=== PATIENT | female | born 1995 | race Caucasian/White ===

== ENCOUNTER 2016-11-22 15:35 | Emergency (ER) | payer BC, OTHER ==
[~2016-11-22 15:35] MED LIST: ADVA100A INH; PRED20 PO; TRIA0.1P3 MT; Z.0.UNKNOWN
[2016-11-22] MEDS ORDERED: ACETAMINOPHEN 325 MG TAB PO ONE (16:45)
--- NOTE | 2016-11-22 16:53 | PD ---
HPI Chief Complaint Fever, body, sore throat Date Seen: Nov 22, 2016 Time Seen: 16:44 Travel History International Travel<30 Days: No Contact w/Intl Traveler<30Days: No Known Affected Area: No History of Present Illness HPI 21-year-old 1 at 32-4/7 weeks' gestation with an EDC of January 13 who presents with a one-day history of upper respiratory symptoms including slight cough, sore throat, body ache, fever 100.8. She reports that her was sick earlier in the week with similar symptoms. She denies any obstetrical complaints at this time other than decreased movement today. Para: 0 : 1 History Past Medical History Medical History: Denies Significant Hx Past Surgical History Surgical History: No Previous Surgery Family History Family History: Negative Social History Narrative Social History Alcohol Use: No Tobacco Use: No Substance Abuse: No Allergies-Medications (Allergen,Severity, Reaction): Coded Allergies: No Known Allergies (Verified , 11/22/16) Home Meds Active Scripts Kenalog In Orab0.1 % 0.1 % Pst0.1 % Mt Daily Prn (Pain) #1 Pst Prov:Jose Chawla MD 04/11/15 Fluticasone-Salmeterol (Advair Diskus 100/50)100 Mcg/50 Mcg Inhp1 Puff INH BID #1 Ref 0 Prov:Gena Sibley MD 08/24/08 Prednisone (Deltasone)20 Mg Tab20 Mg PO DAILY #5 Ref 0 Prov:Gena Sibley MD 08/24/08 Reported Medications Miscellaneous (Unknown Meds) Misc Ref 0 08/24/08 Review of Systems Except as stated in HPI: all other systems reviewed are Neg Physical Exam Narrative GENERAL: Well-nourished, well-developed patient. SKIN: Warm and dry. HEAD: Normocephalic and atraumatic. EYES: No scleral icterus. No injection or drainage. ENT: No nasal drainage noted. Mucous membranes pink. Airway patent. NECK: Supple, trachea midline. No JVD. CARDIOVASCULAR: Regular rate and rhythm without murmurs, gallops, or rubs. RESPIRATORY: Breath sounds equal bilaterally. No accessory muscle use. GENITOURINARY: External Genitalia: intact and normal in appearance BUS glands: [-] Cervix: [-] Dilatation: [-] Effacement: [-] Station: [-] Presentation: [-] Membranes: [intact or ruptured] Uterine Contractions: [-] FHT's: Category: [-1] Baseline: [-160] Reactive: [Yes-] Variability: [-] Average Decels: [-] EXTREMITIES: No cyanosis or edema. BACK: Nontender without obvious deformity. No CVA tenderness. NEUROLOGICAL: Awake and alert. Motor and sensory grossly within normal limits. Five out of 5 muscle strength in all muscle groups. Normal speech. Data Data Vital Signs Reviewed: Yes MDM Medical Record Reviewed: Yes Narrative Course / MDM 21-year-old primigravida with as per respiratory virus symptoms, rule out influenza Plan: Influenza testing was negative Tylenol, by mouth hydration, cough syrup Diagnosis Diagnosis: Primary Impression: URI (upper respiratory infection) Additional Impression: 32 weeks gestation of Disposition: 01 DISCHARGE HOME Mirza Harrison MD Nov 22, 2016 16:53
== END 2016-11-22 18:02 | disposition home or self-care (01) ==
LOC: HOBED 15:35
DX: O99.513 Diseases of the respiratory system complicating pregnancy, third trimester (principal); J06.9 Acute upper respiratory infection, unspecified; Z3A.32 32 weeks gestation of pregnancy
CPT/HCPCS: 87804; 99284

== ENCOUNTER 2017-01-09 21:50 | Emergency (ER) | payer BC ==
--- NOTE | 2017-01-09 22:50 | PD ---
HPI Chief Complaint Contractions Date Seen: Jan 09, 2017 Travel History International Travel<30 Days: No Contact w/Intl Traveler<30Days: No Known Affected Area: No History of Present Illness HPI This patient is a 21-year-old at 39 weeks presents clinically contractions. She sees Dr. Lovell for care. Denies bleeding or rupture the membranes. heart rate tracing is reactive and she is carly every 3 minutes. Para: 0 : 1 History Past Medical History Medical History: Denies Significant Hx Allergies-Medications (Allergen,Severity, Reaction): Coded Allergies: No Known Allergies (Verified , 11/22/16) Home Meds Active Scripts Triamcinolone Acetonide (Mouth (Kenalog In Orabase)0.1 % Pst0.1 % Mt Daily Prn ( Pain) #1 Pst Prov:Jose Chawla MD 04/11/15 Fluticasone-Salmeterol (Advair Diskus 100/50)100 Mcg/50 Mcg Inhp1 Puff INH BID #1 Ref 0 Prov:Gena Sibley MD 08/24/08 Prednisone (Deltasone)20 Mg Tab20 Mg PO DAILY #5 Ref 0 Prov:Gena Sibley MD 08/24/08 Reported Medications Miscellaneous (Unknown Meds) Misc Ref 0 08/24/08 Review of Systems General / Constitutional: No: Fever, Weight Gain, Chills, Other Eyes: No: Diploplia, Blurred Vision, Visual changes, Pain, Photophobia HENT: No: Headaches, Vertigo, Lightheadedness Cardiovascular: No: Irregular Rhythm, Chest Pain or Discomfort, Palpitations, Tachycardia, Syncope, Varicosities, Edema, Cyanosis Respiratory: No: Cough, Short of Breath, Other Gastrointestinal: No: Nausea, Vomiting, Diarrhea Genitourinary: No: Decreased Urinary Output, Oliguria Musculoskeletal: No: Limited ROM, Weakness, Cramping, Edema, Pain Skin: No Rash, No Itching, No Dryness, No Lumps, No Change in Pigmentation, No Change in Nails, No Alopecia, No Lesions Neurologic: No: Weakness, Dizziness, Syncope, Focal Abnormalities, Coordination Problem, Headache, Slurred Speech, Seizures Psychiatric: No: Depression, Suicidal Ideations, Homicidal Ideation Endocrine: No: Heat Intolerance, Cold Intolerance, Polydipsia, Polyuria, Other Physical Exam Narrative GENERAL: Well-nourished, well-developed patient. SKIN: Warm and dry. HEAD: Normocephalic and atraumatic. EYES: No scleral icterus. No injection or drainage. ENT: No nasal drainage noted. Mucous membranes pink. Airway patent. NECK: Supple, trachea midline. No JVD. CARDIOVASCULAR: Regular rate and rhythm without murmurs, gallops, or rubs. RESPIRATORY: Breath sounds equal bilaterally. No accessory muscle use. BREASTS: Bilateral exam showed no masses , no retractions, no nipple discharge. ABDOMEN/GI: Abdomen soft, non-tender, bowel sounds present, no rebound, no guarding Gravid to [-37] weeks size Fundal Height: [37-] GENITOURINARY: External Genitalia: intact and normal in appearance BUS glands: [-] Cervix: [-2] Dilatation: [2-] Effacement: [50-] Station: [-3] posterior Presentation: [-vtx] Membranes: [intact ] Uterine Contractions: [Every 3 minutes-] FHT's: Category: [1-] Baseline: [133-] Reactive: [-yes] Variability: [mod-] Decels: [-none] EXTREMITIES: No cyanosis or edema. BACK: Nontender without obvious deformity. No CVA tenderness. NEUROLOGICAL: Awake and alert. Motor and sensory grossly within normal limits. Five out of 5 muscle strength in all muscle groups. Normal speech. MDM Interpretation(s) 21-year-old at 39 weeks presents planning contractions no bleeding or ruptured membranes heart rate tracing is reactive. She sees Dr. Lovell for care. Was noted be 2 cm in the office recently and tonight she still 2 cm 50% -3 very posterior. Offered a pain shot her sedation and relief she did not want that. Discharge home Plan Plan to discharge home to bedrest the 20 fluids Tylenol when necessary heating pad or hot bath soak, she is to return for an increase in contraction pain or any other symptoms associated with labor onset Diagnosis Diagnosis: Primary Impression: False labor after 37 weeks of gestation without delivery Disposition: 01 DISCHARGE HOME Condition: Stable Shahid Huston II, MD Jan 09, 2017 22:50
== END 2017-01-09 23:12 | disposition home or self-care (01) ==
LOC: HOBED 21:50
DX: O47.1 False labor at or after 37 completed weeks of gestation (principal); Z3A.39 39 weeks gestation of pregnancy
CPT/HCPCS: 99284

== ENCOUNTER 2017-01-10 01:45 | Inpatient (IN) | payer BC, OTHER ==
[2017-01-10] VITALS (50 sets, daily range): BP systolic 92–116; BP diastolic 24–82; PULSE 75–110; RESP 16–20; TEMP 97.9–98.8; O2SAT 99–100
[~2017-01-10] VITALS: Ht 157.5 cm; Wt 65.8 kg
[2017-01-10] MEDS ORDERED: LACTATED RINGER'S 1000 ML INJ 1,000 ML IV PRN (02:10)
--- NOTE | 2017-01-10 02:10 | HHI.HP ---
HPI Chief Complaint Worsening contractions Date Seen: Jan 10, 2017 Travel History International Travel<30 Days: No Contact w/Intl Traveler<30Days: No Known Affected Area: No History of Present Illness HPI Patient is 21-year-old at 39 weeks presents back and OB ED for complaining of worsening contraction pain. She was seen about 4 hours ago and sent home she was still 2 cm she now presents with stronger contractions that she's cervix is 4/ 90 and -1, she denies bleeding or rupture the membranes was Dr. Lovell for care Para: 0 : 1 History Past Medical History Medical History: Denies Significant Hx Social History Alcohol Use: No Tobacco Use: No Substance Abuse: No Allergies-Medications (Allergen,Severity, Reaction): Coded Allergies: No Known Allergies (Verified , 11/22/16) Home Meds Active Scripts Triamcinolone Acetonide (Mouth (Kenalog In Orabase)0.1 % Pst0.1 % Mt Daily Prn ( Pain) #1 Pst Prov:Jose Chawla MD 04/11/15 Fluticasone-Salmeterol (Advair Diskus 100/50)100 Mcg/50 Mcg Inhp1 Puff INH BID #1 Ref 0 Prov:Gena Sibley MD 08/24/08 Prednisone (Deltasone)20 Mg Tab20 Mg PO DAILY #5 Ref 0 Prov:Gena Sibley MD 08/24/08 Reported Medications Miscellaneous (Unknown Meds) Misc Ref 0 08/24/08 Review of Systems General / Constitutional: No: Fever, Weight Gain, Chills, Other Eyes: No: Diploplia, Blurred Vision, Visual changes, Pain, Photophobia HENT: No: Headaches, Vertigo, Lightheadedness Cardiovascular: No: Irregular Rhythm, Chest Pain or Discomfort, Palpitations, Tachycardia, Syncope, Varicosities, Edema, Cyanosis Respiratory: No: Cough, Short of Breath, Other Gastrointestinal: No: Nausea, Vomiting, Diarrhea Genitourinary: No: Decreased Urinary Output, Oliguria Musculoskeletal: No: Limited ROM, Weakness, Cramping, Edema, Pain Skin: No Rash, No Itching, No Dryness, No Lumps, No Change in Pigmentation, No Change in Nails, No Alopecia, No Lesions Neurologic: No: Weakness, Dizziness, Syncope, Focal Abnormalities, Coordination Problem, Headache, Slurred Speech, Seizures Psychiatric: No: Depression, Suicidal Ideations, Homicidal Ideation Endocrine: No: Heat Intolerance, Cold Intolerance, Polydipsia, Polyuria, Other Physical Exam Narrative GENERAL: Well-nourished, well-developed patient. SKIN: Warm and dry. HEAD: Normocephalic and atraumatic. EYES: No scleral icterus. No injection or drainage. ENT: No nasal drainage noted. Mucous membranes pink. Airway patent. NECK: Supple, trachea midline. No JVD. CARDIOVASCULAR: Regular rate and rhythm without murmurs, gallops, or rubs. RESPIRATORY: Breath sounds equal bilaterally. No accessory muscle use. BREASTS: Bilateral exam showed no masses , no retractions, no nipple discharge. ABDOMEN/GI: Abdomen soft, non-tender, bowel sounds present, no rebound, no guarding Gravid to [-38] weeks size Fundal Height: [38-] GENITOURINARY: External Genitalia: intact and normal in appearance BUS glands: [-] Cervix: [-] Dilatation: [4-] Effacement: [90-] Station: [-1] Presentation: [vtx-] Membranes: [intact ] Uterine Contractions: [reg-] FHT's: Category: [-1] Baseline: [144-] Reactive: yes-] Variability: [-mod] Decels: [-none] EXTREMITIES: No cyanosis or edema. BACK: Nontender without obvious deformity. No CVA tenderness. NEUROLOGICAL: Awake and alert. Motor and sensory grossly within normal limits. Five out of 5 muscle strength in all muscle groups. Normal speech. Assessment/Plan Assessment and Plan This patient is 21-year-old at [address] Lovell for care now in the active labor pattern, she is denying bleeding or rupture the membranes baby's heart rate tracing is reactive, she is carly every 2 minutes cervix is 4 cm 90%. Plan to admit the patient and anticipate vaginal delivery will notify her OB provider Shahid Huston II, MD Jan 10, 2017 02:10
[2017-01-10] MEDS ORDERED: OXYTOCIN 30 UNITS-500ML PREMIX 500 ML IV ONE (02:15)
[2017-01-10] MEDS ORDERED: CITRIC ACID-SODIUM CITRATE LIQ 30 ML UDC PO SCH (02:15)
[2017-01-10] MEDS ORDERED: LIDOCAINE HCL 1% 50 ML VIAL I-DERMAL PRN (02:15)
[2017-01-10] MEDS ORDERED: LIDOCAINE HCL 1% 50 ML VIAL INFIL PRN (02:15)
[2017-01-10] MEDS ORDERED: MINERAL OIL 10 ML VIAL TOPICAL PRN (02:15)
[2017-01-10] MEDS ORDERED: SODIUM CHLORID 0.9% 500 ML INJ 500 ML IV PRN (02:15)
[2017-01-10] MEDS ORDERED: SODIUM CHLOR 0.9% 1000 ML INJ 1,000 ML IV PRN (02:30)
[2017-01-10 02:45] LABS: AUTOMATED NEUTROPHIL # 9.2 TH/MM3 (1.8-7.7); BASOPHIL # 0.1 TH/MM3 (0-0.2); BASOPHIL % 0.5 % (0.0-2.0); EOSINOPHIL % 0.3 % (0.0-4.0); HEMATOCRIT 30.8 % (35.0-46.0); HEMO FLAGS DIFF FINAL; LYMPH % 16.4 % (9.0-44.0); MEAN CELL VOLUME 86.4 FL (80.0-100.0); MEAN CORPUSCULAR HEMOGLOBIN 29.1 PG (27.0-34.0); MEAN CORPUSCULAR HGB CONC 33.6 % (32.0-36.0); MONO % 6.4 % (0.0-8.0); NEUT % 76.4 % (16.0-70.0); PLATELET COUNT 268 TH/MM3 (150-450); RED BLOOD COUNT 3.57 MIL/MM3 (4.00-5.30); RED CELL DISTRIBUTION WIDTH 13.7 % (11.6-17.2)
[2017-01-10 02:52] LABS: BLOOD, URINE NEG (NEG); COMMENT (UR) CULT NOT INDICATED; CULTURE IF INDICATED CULT NOT INDICATED; GLUCOSE,URINE NEG (NEG); KETONE, URINE 10 mg/dL (NEG); MUCUS URINE FEW /lpf (OCC); NITRITE,URINE NEG (NEG); PH, URINE 6.5 (5.0-8.5); SQUAMOUS EPITHELIAL CELL URINE 1 /hpf (0-5); URINE COLOR YELLOW (YELLW/STRAW)
[2017-01-10] MEDS: LACTATED RINGER'S 1000 ML INJ 1,000 ML IV SCH ×2 (03:12→05:21)
--- NOTE | 2017-01-10 09:20 | PD.LABORPN ---
Subjective Subjective Pt breathing with ctxs, does not want epidural Objective Vital Signs Vital Signs Date Time Temp Pulse Resp B/P Pulse Ox O2 Delivery O2 Flow Rate FiO2 01/10/17 08:45 90 114/82 01/10/17 08:43 20 01/10/17 08:43 18 01/10/17 08:18 98.0 01/10/17 08:04 20 01/10/17 08:04 106 116/70 01/10/17 07:07 18 01/10/17 07:06 82 97/59 01/10/17 06:40 18 01/10/17 06:40 98.1 01/10/17 06:39 80 94/32 01/10/17 06:30 18 01/10/17 05:00 97.9 18 01/10/17 04:59 75 109/59 01/10/17 04:15 18 01/10/17 04:01 75 104/57 01/10/17 02:45 18 01/10/17 02:42 87 114/61 01/10/17 02:15 97.9 Objective Pelvic Exam: Cervix: [-] Dilatation: [7-8-] Effacement: [-100%] Station: [0] Presentation: [OA] Membranes: [AROM clear fluid] Uterine Contractions: [q 3 min] FHT's: Category: [1] Baseline: [150's] Reactive: [Reactive] Variability: [-] Decels: [-] Assessment/Plan Problem List: (1) Labor without complication Assessment and Plan expectant mngmt Jacki King MD Jan 10, 2017 09:20
--- NOTE | 2017-01-10 11:19 | PD.OB.DELI ---
Anesthesia: Lidocaine local to perineum Episiotomy: Midline Vaginal Delivery: Normal Presentation: Occiput anterior Nuchal Cord: None Delayed cord clamping (45 sec): Yes : Female, Single One Minute : 8 Five Minute : 9 Weight: 8-1 Care: Spontaneous crying, Responded to stimulation Placenta: Spontaneous delivery, Intact, 3 vessel cord Laceration: Episiotomy Repair: Chromic interrupted, Chromic running Jacki King MD Jan 10, 2017 11:19
[2017-01-10] MEDS ORDERED: ACETAMINOPHEN 325 MG TAB PO PRN (11:30)
[2017-01-10] MEDS ORDERED: ZOLPIDEM TARTRATE 5 MG TAB PO PRN (11:30)
[2017-01-10] MEDS ORDERED: BENZOCAINE 20% TOPICAL SPRAY 60 ML CAN TOPICAL PRN (11:30)
[2017-01-10] MEDS ORDERED: SODIUM CHLORIDE 0.9% FLUSH 5 ML FLUSH IV PRN (11:30)
[2017-01-10] MEDS ORDERED: ONDANSETRON ODT 4 MG TAB PO PRN (11:30)
[2017-01-10] MEDS ORDERED: WITCH HAZEL 50%/GLYCERIN 12.5% 40 PAD JAR TOPICAL PRN (11:30)
[2017-01-10] MEDS ORDERED: ALUMINUM/MAGNESIUM/SIMETH 30 ML CUP PO PRN (11:30)
[2017-01-10] MEDS ORDERED: LACTATED RINGER'S 1000 ML INJ 1,000 ML IV SCH (14:00)
[2017-01-10] MEDS ORDERED: AMMONIA AROMATIC INHALANT 0.33 ML ONE (15:41)
[2017-01-10] MEDS ORDERED: LACTATED RINGER'S 1000 ML INJ 1,000 ML IV ONE (16:00)
[2017-01-10] MEDS ORDERED: DIPHTH/TETANUS/ACEL PERTUSSIS (BOOSTER) 0.5 ML VIAL/PFS IM ONE (16:00)
[2017-01-10] MEDS ORDERED: MEASLES, MUMPS, RUBELLA VACCINE 0.5 ML VIAL SQ ONE (16:00)
[2017-01-10] MEDS: DOCUSATE SODIUM 50 MG/SENNA 8.6 MG TAB PO PRN (18:08)
[2017-01-10] MEDS: IBUPROFEN 600 MG TAB PO PRN (18:09)
[2017-01-10] MEDS: oxyCODONE/ACETAMINOPHEN 5 MG/325 MG TAB PO PRN ×2 (18:09→22:05)
[2017-01-10] MEDS ORDERED: SODIUM CHLORIDE 0.9% FLUSH 5 ML FLUSH IV SCH (21:00)
[2017-01-11 08:00] VITALS: BP 107/56; PULSE 78; RESP 18; TEMP 97.8
[2017-01-11] MEDS: oxyCODONE/ACETAMINOPHEN 5 MG/325 MG TAB PO PRN ×2 (11:52→17:32)
[2017-01-11] MEDS: IBUPROFEN 600 MG TAB PO PRN ×2 (11:52→17:32)
[2017-01-11] MEDS: DOCUSATE SODIUM 50 MG/SENNA 8.6 MG TAB PO PRN (11:53)
--- NOTE | 2017-01-11 13:10 | HHI.OB ---
Subjective Post Day: 1 Remarks Pt co some perineal pain, urinating well , no other co Objective Vitals/I&O Vital Signs Date Time Temp Pulse Resp B/P Pulse Ox O2 Delivery O2 Flow Rate FiO2 01/11/17 08:00 97.8 78 18 107/56 01/11/17 08:00 97.8 78 18 107/56 01/10/17 19:40 98.6 01/10/17 19:40 96 17 106/64 01/10/17 15:40 98.8 94 16 105/65 01/10/17 13:50 84 100 01/10/17 13:49 18 01/10/17 13:45 81 107/57 99 01/10/17 13:45 75 01/10/17 13:40 84 99 01/10/17 13:35 80 99 01/10/17 13:30 81 107/58 01/10/17 13:30 78 99 01/10/17 13:25 99 01/10/17 13:25 81 01/10/17 13:20 86 01/10/17 13:20 100 01/10/17 13:15 99 01/10/17 13:15 82 104/59 01/10/17 13:15 81 01/10/17 13:10 79 99 Objective Remarks GENERAL: Well-nourished, well-developed patient. CARDIOVASCULAR: Regular rate and rhythm without murmurs, gallops, or rubs. RESPIRATORY: Breath sounds equal bilaterally. No accessory muscle use. ABDOMEN/GI: Abdomen soft, non-tender. Fundus: Firm, non-tender at umbilicus. GENITOURINARy: edematous vulva bilaterally, no hematoma EXTREMITIES: No cyanosis or edema, non-tender, without signs of DVT. Medications and IVs Current Medications Medications (Trade) Dose Ordered Sig/Judd Route Start Time Stop Time Status Last Admin Lactated Ringer's 1,000 ml @ 125 mls/hr Q8H IV 01/10/17 02:10 01/10/17 05:21 Lactated Ringer's 1,000 ml @ 3,000 mls/hr Q20M PRN IV 01/10/17 02:10 (NS 1000 ml Inj) 1,000 ml @ 100 mls/hr Q10H PRN IV 01/10/17 02:30 (fentaNYL INJ) 50 mcg Q1H PRN IV PUSH 01/10/17 02:15 (fentaNYL INJ) 100 mcg Q1H PRN IV PUSH 01/10/17 02:15 01/10/17 08:32 (Muri-Lube Oil) 10 ml UNSCH PRN TOPICAL 01/10/17 02:15 (NS Flush) 2 ml BID IV 01/10/17 21:00 (NS Flush) 2 ml UNSCH PRN IV 01/10/17 11:30 (Tylenol) 650 mg Q4H PRN PO 01/10/17 11:30 (Motrin) 600 mg Q6H PRN PO 01/10/17 11:30 01/11/17 11:52 (Percocet 5-325 Mg) 1 tab Q4H PRN PO 01/10/17 11:30 01/11/17 11:52 (Percocet 5-325 Mg) 2 tab Q4H PRN PO 01/10/17 11:30 01/10/17 22:05 (Americaine 20% Top Spr) 1 spray Q4H PRN TOPICAL 01/10/17 11:30 01/10/17 18:08 (Tucks Pads) 1 applic QID PRN TOPICAL 01/10/17 11:30 01/10/17 18:08 (Tracy-Colace) 2 tab Q12H PRN PO 01/10/17 11:30 01/11/17 11:53 (Ambien) 5 mg HS PRN PO 01/10/17 11:30 (Mag-Al Plus Susp Liq) 15 ml Q8H PRN PO 01/10/17 11:30 (Zofran Odt) 4 mg Q6H PRN PO 01/10/17 11:30 Assessment/Plan Problem List: (1) Labor without complication Assessment and Plan PPD # 1 s/p with some perineal edema, overall doing well Discharge Planning plan for dc in Jacki Tellez MD Jan 11, 2017 13:10
[2017-01-11 19:54] VITALS: BP 104/65; PULSE 86; RESP 16; TEMP 98.1
[2017-01-12] MEDS: IBUPROFEN 600 MG TAB PO PRN ×2 (03:48→12:40)
[2017-01-12] MEDS: oxyCODONE/ACETAMINOPHEN 5 MG/325 MG TAB PO PRN ×2 (03:48→12:40)
[2017-01-12 08:00] VITALS: BP 102/56; PULSE 81; RESP 16; TEMP 97.6
[2017-01-12] MEDS ORDERED: OXYC1TAB63 PO (12:45)
--- NOTE | 2017-01-12 12:47 | HHI.DCPOC ---
Discharge Care Plan Diagnosis: (1) Labor without complication Your Health Problems Are: Vaginal delivery Additional Problems vulvar edema Report Symptoms to Your Doctor -Temperate above 100.5 degrees -Redness, of incision or excessive or foul smelling drainage -Unusual pain or calf pain -Increased vaginal bleeding -Painful or difficulty urinating -Feelings of extreme sadness or anxiety after 2 weeks Goals to Promote Your Health * To prevent worsening of your condition and complications * To maintain your health at the optimal level Directions to Meet Your Goals Take your medications as prescribed Follow your dietary instruction Follow activity as directed Ensure plenty of rest for recovery Drink fluids for hydration Keep your appointments as scheduled Take your immunizations and boosters as scheduled If your symptoms worsen call your PCP, if no PCP go to Urgent Care Center or Emergency Room Smoking is Dangerous to Your Health. Avoid second hand smoke Call the 24-hour crisis hotline for domestic abuse at Jacki King MD Jan 12, 2017 12:47
== END 2017-01-12 14:52 | disposition home or self-care (01) | DRG 775 ==
LOC: HOBED 01:45 → H2EB 02:16 → H1EA 15:06
PROVIDERS: ADMIT Obstetrics & Gynecology; ATTEND Obstetrics & Gynecology
PROC: 10E0XZZ Delivery of Products of Conception, External Approach (ICD-10-PCS; principal; 2017-01-10)
PROC: 0W8NXZZ Division of Female Perineum, External Approach (ICD-10-PCS; 2017-01-10)
DX: O80 Encounter for full-term uncomplicated delivery (principal); Z37.0 Single live birth; Z3A.39 39 weeks gestation of pregnancy
CPT/HCPCS: 81001; 85025; 86900; 86901; 99284; 99285; J3010; J7120

== ENCOUNTER 2017-11-28 23:09 | Emergency (ER) | payer BC, OTHER ==
[~2017-11-28] VITALS: Ht 157.5 cm; Wt 57.0 kg
[~2017-11-28 23:09] MED LIST changes: -ADVA100A INH; +OXYC1TAB63 PO; -PRED20 PO; -TRIA0.1P3 MT; -Z.0.UNKNOWN
[2017-11-28 23:10] VITALS: BP 123/63; PULSE 68; RESP 16; TEMP 98.6; O2SAT 99
[2017-11-28] MEDS ORDERED: SODIUM CHLOR 0.9% 1000 ML INJ 1,000 ML IV ONE (23:45)
[2017-11-28] MEDS ORDERED: KETOROLAC TROMETHAMINE 30 MG/ML (IVP) VIAL IV PUSH ONE (23:45)
[2017-11-28] MEDS ORDERED: SODIUM CHLORIDE 0.9% FLUSH 10 ML FLUSH IV FLUSH PRN (23:45)
[2017-11-28 23:48] LABS: BACTERIA, URINE RARE /hpf; BILIRUBIN, URINE NEG (NEG); BLOOD, URINE LARGE (NEG); GLUCOSE,URINE NEG (NEG); KETONE, URINE 10 mg/dL (NEG); MUCUS URINE MANY /lpf (OCC); NITRITE,URINE NEG (NEG); SQUAMOUS EPITHELIAL CELL URINE 13 /hpf (0-5); URINE COLOR YELLOW (YELLW/STRAW); URINE LEUKOCYTE ESTERASE LARGE (NEG)
--- NOTE | 2017-11-28 23:56 | PD ---
HPI Chief Complaint: Abdominal Pain Time Seen by Provider: 23:21 Travel History International Travel<30 days: No Contact w/Intl Traveler<30days: No Traveled to known affect area: No History of Present Illness HPI 22-year-old female here for evaluation of lower abdominal pain that started yesterday. Patient reports that the pain has been constant since yesterday, described as sharp/pressure-like, is bilateral and lower, worse with sitting, improved with laying flat. She denies fevers or chills. No nausea or vomiting. No diarrhea. No history of abdominal surgeries. States that her last menstrual period was 10/19/17. She denies vaginal bleeding or discharge. She is sexually active with one partner and she is to. She has been one time and has one child. She reports a negative test at home 2 weeks ago and does not believe she is . Pain has been worsening throughout the day today and is currently moderate to severe. She denies urinary symptoms. PFSH Past Medical History Asthma: Yes Diminished Hearing: No Immunizations Current: Yes Tetanus Vaccination: > 5 Years Influenza Vaccination: No ?: Not LMP: 10/19/2017 Past Surgical History Surgical History: No Previous Surgery Social History Alcohol Use: No Tobacco Use: No Substance Use: No Allergies-Medications (Allergen,Severity, Reaction): Coded Allergies: No Known Allergies (Verified Adverse Reaction, Unknown, 11/28/17) Reported Meds & Prescriptions Reported Meds & Active Scripts Active No Active Prescriptions or Reported Medications Review of Systems Except as stated in HPI: all other systems reviewed are Neg Physical Exam Narrative GENERAL: Well-developed, well-nourished, comfortable, no apparent distress. SKIN: Focused skin assessment warm/dry. HEAD: Atraumatic. Normocephalic. EYES: Pupils equal and round. No scleral icterus. No injection or drainage. ENT: No nasal bleeding or discharge. Mucous membranes pink and moist. NECK: Trachea midline. No JVD. CARDIOVASCULAR: Regular rate and rhythm. No murmur appreciated. RESPIRATORY: No accessory muscle use. Clear to auscultation. Breath sounds equal bilaterally. GASTROINTESTINAL: Abdomen soft, nondistended. Mild suprapubic tenderness, right lower quadrant, and left lower quadrant tenderness without peritoneal signs. Normal bowel sounds. No hernias. TOOL ROOM MACHINIST: Exam performed in the presence of a female nurse. Normal external genitalia. Scant blood in vaginal vault coming from cervical os. Normal appearing cervix. No foul-smelling vaginal discharge. No adnexal masses or tenderness. No CMT. MUSCULOSKELETAL: No obvious deformities. No clubbing. No cyanosis. No edema. NEUROLOGICAL: Awake and alert. No obvious cranial nerve deficits. Motor grossly within normal limits. Normal speech. PSYCHIATRIC: Appropriate mood and affect; insight and judgment normal. Data Data Last Documented VS Vital Signs Date Time Temp Pulse Resp B/P (MAP) Pulse Ox O2 Delivery O2 Flow Rate FiO2 11/29/17 00:51 20 100 Room Air 11/28/17 23:10 98.6 68 Orders Orders Urinalysis - C+S If Indicated (11/28/17 23:25) Ed Urine Pregnancytest Poc (11/28/17 23:25) Complete Blood Count With Diff (11/28/17 23:31) Comprehensive Metabolic Panel (11/28/17 23:31) Prothrombin Time / Inr (Pt) (11/28/17 23:31) Act Partial Throm Time (Ptt) (11/28/17 23:31) Ct Abd/Pel W Iv Contrast(Rout) (11/28/17 23:31) Iv Access Insert/Monitor (11/28/17 23:31) Ecg Monitoring (11/28/17 23:31) Oximetry (11/28/17 23:31) Sodium Chloride 0.9% Flush (Ns Flush) (11/28/17 23:45) Gc And Chlamydia Pcr (11/28/17 23:31) Wet Prep Profile (11/28/17 23:31) Ketorolac Inj (Toradol Inj) (11/28/17 23:45) Sodium Chlor 0.9% 1000 Ml Inj (Ns 1000 M (11/28/17 23:45) Oral Contrast - Adult (11/28/17 23:34) Urine Culture (11/28/17 23:30) Us Pelvis Comp W Dop Transvag (11/28/17 23:31) Diatrizoate Liq ( Gastroview Liq) (11/29/17 00:45) Ceftriaxone Inj (Rocephin Inj) (11/29/17 00:45) Labs Laboratory Tests Test 11/28/17 23:30 11/29/17 00:05 11/29/17 00:30 Urine Color YELLOW Urine Turbidity HAZY Urine pH 6.0 Urine Specific Widen 1.028 Urine Protein 30 mg/dL Urine Glucose (UA) NEG mg/dL Urine Ketones 10 mg/dL Urine Occult Blood LARGE Urine Nitrite NEG Urine Bilirubin NEG Urine Urobilinogen 2.0 MG/DL Urine Leukocyte Esterase LARGE Urine RBC 14 /hpf Urine WBC 54 /hpf Urine Squamous Epithelial Cells 13 /hpf Urine Bacteria RARE /hpf Urine Mucus MANY /lpf Microscopic Urinalysis Comment CULTURE INDICATED White Blood Count 7.0 TH/MM3 Red Blood Count 4.39 MIL/MM3 Hemoglobin 12.5 GM/DL Hematocrit 37.8 % Mean Corpuscular Volume 86.1 FL Mean Corpuscular Hemoglobin 28.5 PG Mean Corpuscular Hemoglobin Concent 33.1 % Red Cell Distribution Width 15.1 % Platelet Count 279 TH/MM3 Mean Platelet Volume 7.9 FL Neutrophils (%) (Auto) 57.2 % Lymphocytes (%) (Auto) 31.5 % Monocytes (%) (Auto) 9.8 % Eosinophils (%) (Auto) 0.9 % Basophils (%) (Auto) 0.6 % Neutrophils # (Auto) 4.0 TH/MM3 Lymphocytes # (Auto) 2.2 TH/MM3 Monocytes # (Auto) 0.7 TH/MM3 Eosinophils # (Auto) 0.1 TH/MM3 Basophils # (Auto) 0.0 TH/MM3 CBC Comment DIFF FINAL Differential Comment Prothrombin Time 10.1 SEC Prothromb Time International Ratio 1.0 RATIO Activated Partial Thromboplast Time 26.7 SEC Blood Urea Nitrogen 13 MG/DL Creatinine 0.56 MG/DL Random Glucose 90 MG/DL Total Protein 8.0 GM/DL Albumin 4.3 GM/DL Calcium Level 9.0 MG/DL Alkaline Phosphatase 76 U/L Aspartate Amino Transf (AST/SGOT) 16 U/L Alanine Aminotransferase (ALT/SGPT) 18 U/L Total Bilirubin 1.4 MG/DL Sodium Level 140 MEQ/L Potassium Level 3.5 MEQ/L Chloride Level 104 MEQ/L Carbon Dioxide Level 27.8 MEQ/L Anion Gap 8 MEQ/L Estimat Glomerular Filtration Rate 137 ML/MIN Clue Cells (Wet Prep) NONE SEEN Vaginal Trichomonas (Wet Prep) NONE SEEN Vaginal Yeast (Wet Prep) NONE SEEN MDM Medical Decision Making Medical Screen Exam Complete: Yes Emergency Medical Condition: Yes Differential Diagnosis Ovarian cyst, ovarian torsion less likely, PID, TOA, UTI, cystitis, appendicitis , colitis, Narrative Course Vital signs show heart rate 60, blood pressure 123/63, pulse ox 99% on room air , oral temp of 98.6F. CBC is unremarkable. CMP UA: Hazy, 30 protein, 10 ketones, large occult blood, large leukocyte esterase, 14 RBCs, 54 WBCs, rare bacteria, many mucus, culture indicated. Patient was given 1 g of IV Rocephin for these UA findings. Wet prep: Pelvic ultrasound: Unremarkable ultrasound. At approximately 1:00 AM at the end of my shift the patient was signed out to my PA Von Stringer to follow-up with CT abdomen pelvis and formulate a disposition. At this time the patient had received a dose of Toradol and is resting comfortably. There are no peritoneal signs on her exam. She was given 1 g of IV Rocephin for her UA findings and will likely be discharged home with a prescription for Macrobid for a UTI. The patient also began to have some vaginal bleeding here in the emergency department and her last menstrual period was over 6 weeks ago. She reports history of irregular periods, and her pain is most likely secondary to the onset of this menstrual period. If her CT abdomen pelvis is unremarkable, then the patient can be safely discharged home with outpatient follow-up. Patient was made aware of all findings up until this point and of plan. Diagnosis Primary Impression: UTI (urinary tract infection) Qualified Codes: N30.01 - Acute cystitis with hematuria Additional Impression: Abdominal pain Qualified Codes: R10.30 - Lower abdominal pain, unspecified Referrals: Supervisor [employer] 3 days [facility] 3 days Primary Care Physician 3 days Additional Instructions: Follow-up with a primary care physician this week. 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 Return to the emergency department for worsening symptoms or any other concerns. Scripts Ibuprofen (Ibuprofen) 600 Mg Tab 600 MG PO Q8H Y for PAIN for 7 Days, #21 TAB 0 Refills Prov: Hank Centeno MD 11/29/17 Nitrofurantoin Monohydrate Macrocrystals (Macrobid) 100 Mg Cap 100 MG PO BID for Infection for 7 Days, #14 CAP 0 Refills Prov: Hank Centeno MD 11/29/17 Disposition: 01 DISCHARGE HOME Condition: Stable Hank Centeno MD Nov 28, 2017 23:56
[2017-11-29 00:25] LABS: BASOPHIL % 0.6 % (0.0-2.0); EOSINOPHIL # 0.1 TH/MM3 (0-0.4); EOSINOPHIL % 0.9 % (0.0-4.0); HEMATOCRIT 37.8 % (35.0-46.0); HEMOGLOBIN 12.5 GM/DL (11.6-15.3); LYMPH % 31.5 % (9.0-44.0); LYMPHOCYTE # 2.2 TH/MM3 (1.0-4.8); MEAN CELL VOLUME 86.1 FL (80.0-100.0); MEAN CORPUSCULAR HEMOGLOBIN 28.5 PG (27.0-34.0); MEAN CORPUSCULAR HGB CONC 33.1 % (32.0-36.0); MEAN PLATELET VOLUME 7.9 FL (7.0-11.0); MONO % 9.8 % (0.0-8.0); MONOCYTE # 0.7 TH/MM3 (0-0.9); NEUT % 57.2 % (16.0-70.0); PLATELET COUNT 279 TH/MM3 (150-450); RED BLOOD COUNT 4.39 MIL/MM3 (4.00-5.30); RED CELL DISTRIBUTION WIDTH 15.1 % (11.6-17.2)
--- NOTE | 2017-11-29 00:38 | RADRPT ---
EXAM DATE/TIME: 11/28/2017 23:53 [facility] COMPARISON: No previous studies available for comparison. INDICATIONS : Pelvic pain. MEDICAL HISTORY : Pelvic pain. SURGICAL HISTORY : None. ENCOUNTER: Initial ACUITY: 1 day PAIN SCORE: 3/10 LOCATION: Bilateral pelvis MEASUREMENTS: UTERUS: 7.0 x 3.4 x 5.2 cm ENDOMETRIAL STRIPE: 1 mm RIGHT OVARY: 4.2 x 2.4 x 2.7 cm LEFT OVARY: 4.0 x 2.0 x 2.1 cm FINDINGS: UTERUS: The myometrium has homogeneous echotexture without mass. RIGHT OVARY: Ovary contains no mass or significant cystic lesion. Blood flow demonstrated. LEFT OVARY: Ovary contains no mass or significant cystic lesion. Blood flow demonstrated. MISCELLANEOUS: No free fluid. CONCLUSION: 1. Unremarkable ultrasound examination of the pelvis. Sai Powell MD on November 29, 2017 at 0:36 Board Certified Radiologist. This report was verified electronically.
[2017-11-29 00:41] LABS: PROTHROMBIN TIME - PATIENT 10.1 SEC (9.8-11.6)
[2017-11-29] MEDS ORDERED: cefTRIAXone INJ 1,000 MG in SODIUM CHLORIDE 0.9% INJ 100 ML IV ONE (00:45)
[2017-11-29] MEDS ORDERED: DIATRIZOATE MEGLUM/DIATRIZOATE SOD 9 ML CUP PO ONE (00:45)
[2017-11-29 00:51] VITALS: RESP 20; O2SAT 100
[2017-11-29 00:56] LABS: ALBUMIN 4.3 GM/DL (3.4-5.0); AST (GOT) 16 U/L (15-37); BICARBONATE 27.8 MEQ/L (21.0-32.0); BLOOD UREA NITROGEN 13 MG/DL (7-18); CHLORIDE 104 MEQ/L (98-107); CREATININE 0.56 MG/DL (0.50-1.00); GLOMERULAR FILTRATION RATE 137 ML/MIN (>89); GLUCOSE,RANDOM 90 MG/DL (74-106); SODIUM (NA) 140 MEQ/L (136-145)
[2017-11-29 00:57] LABS: ALT (GPT) 18 U/L (10-53)
[2017-11-29 00:59] LABS: ALKALINE PHOSPHATASE 76 U/L (45-117); TOTAL BILIRUBIN ADULT 1.4 MG/DL (0.2-1.0)
[2017-11-29] MEDS ORDERED: IBUP-232 PO (01:39)
[2017-11-29] MEDS ORDERED: MACR100C2 PO (01:39)
[2017-11-29] MEDS ORDERED: IOHEXOL 350 MG/ML 10 ML VIAL (for RAD DIAG) IVCONTRAST ONE (02:14)
--- NOTE | 2017-11-29 02:49 | RADRPT ---
EXAM DATE/TIME: 11/29/2017 02:06 [facility] COMPARISON: US PELVIS,COMP,W DOPLR, TRANS VAG, November 28, 2017, 23:53. INDICATIONS : Lower abdominal pain. IV CONTRAST: 96 cc Omnipaque 350 (iohexol) IV ORAL CONTRAST: Prescribed oral contrast ingested. RADIATION DOSE: 12.64 CTDIvol (mGy) MEDICAL HISTORY : None SURGICAL HISTORY : None. ENCOUNTER: Initial ACUITY: 1 day PAIN SCALE: 5/10 LOCATION: lower quadrant abdomen TECHNIQUE: Volumetric scanning of the abdomen and pelvis was performed. Using automated exposure control and ad justment of the mA and/or kV according to patient size, radiation dose was kept as low as reasonably achievable to obtain optimal diagnostic quality images. DICOM format image data is available electro nically for review and comparison. FINDINGS: LOWER LUNGS: The visualized lower lungs are clear. LIVER: Homogeneous density without lesion. There is no dilation of the biliary tree. No calcified gallston es. SPLEEN: Normal size without lesion. PANCREAS: Within normal limits. KIDNEYS: Normal in size and shape. There is no mass, stone or hydronephrosis. ADRENAL GLANDS: Within normal limits. VASCULAR: There is no aortic aneurysm. BOWEL/MESENTERY: The stomach, small bowel, and colon demonstrate no acute abnormality. Appendix is visualized and unr emarkable. There is no free intraperitoneal air or fluid. ABDOMINAL WALL: Within normal limits. RETROPERITONEUM: There is no lymphadenopathy. BLADDER: No wall thickening or mass. REPRODUCTIVE: Within normal limits. INGUINAL: There is no lymphadenopathy or hernia. MUSCULOSKELETAL: Within normal limits for patient age. CONCLUSION: 1. No definitive findings to explain patient's abdominal pain. 2. Normal appendix. Sai Powell MD on November 29, 2017 at 2:44 Board Certified Radiologist. This report was verified electronically.
--- NOTE | 2017-11-29 03:03 | PD ---
Physical Exam Date Seen by Provider: Nov 29, 2017 Time Seen by Provider: 03:02 Narrative . Data Data Last Documented VS Vital Signs Date Time Temp Pulse Resp B/P (MAP) Pulse Ox O2 Delivery O2 Flow Rate FiO2 11/29/17 00:51 20 100 Room Air 11/28/17 23:10 98.6 68 Orders Orders Urinalysis - C+S If Indicated (11/28/17 23:25) Ed Urine Pregnancytest Poc (11/28/17 23:25) Complete Blood Count With Diff (11/28/17 23:31) Comprehensive Metabolic Panel (11/28/17 23:31) Prothrombin Time / Inr (Pt) (11/28/17 23:31) Act Partial Throm Time (Ptt) (11/28/17 23:31) Ct Abd/Pel W Iv Contrast(Rout) (11/28/17 23:31) Iv Access Insert/Monitor (11/28/17 23:31) Ecg Monitoring (11/28/17 23:31) Oximetry (11/28/17 23:31) Sodium Chloride 0.9% Flush (Ns Flush) (11/28/17 23:45) Gc And Chlamydia Pcr (11/28/17 23:31) Wet Prep Profile (11/28/17 23:31) Ketorolac Inj (Toradol Inj) (11/28/17 23:45) Sodium Chlor 0.9% 1000 Ml Inj (Ns 1000 M (11/28/17 23:45) Oral Contrast - Adult (11/28/17 23:34) Urine Culture (11/28/17 23:30) Us Pelvis Comp W Dop Transvag (11/28/17 23:31) Diatrizoate Liq ( Gastroview Liq) (11/29/17 00:45) Ceftriaxone Inj (Rocephin Inj) (11/29/17 00:45) Iohexol 350 Inj (Omnipaque 350 Inj) (11/29/17 02:14) Labs Laboratory Tests Test 11/28/17 23:30 11/29/17 00:05 11/29/17 00:30 Urine Color YELLOW Urine Turbidity HAZY Urine pH 6.0 Urine Specific [place] 1.028 Urine Protein 30 mg/dL Urine Glucose (UA) NEG mg/dL Urine Ketones 10 mg/dL Urine Occult Blood LARGE Urine Nitrite NEG Urine Bilirubin NEG Urine Urobilinogen 2.0 MG/DL Urine Leukocyte Esterase LARGE Urine RBC 14 /hpf Urine WBC 54 /hpf Urine Squamous Epithelial Cells 13 /hpf Urine Bacteria RARE /hpf Urine Mucus MANY /lpf Microscopic Urinalysis Comment CULTURE INDICATED White Blood Count 7.0 TH/MM3 Red Blood Count 4.39 MIL/MM3 Hemoglobin 12.5 GM/DL Hematocrit 37.8 % Mean Corpuscular Volume 86.1 FL Mean Corpuscular Hemoglobin 28.5 PG Mean Corpuscular Hemoglobin Concent 33.1 % Red Cell Distribution Width 15.1 % Platelet Count 279 TH/MM3 Mean Platelet Volume 7.9 FL Neutrophils (%) (Auto) 57.2 % Lymphocytes (%) (Auto) 31.5 % Monocytes (%) (Auto) 9.8 % Eosinophils (%) (Auto) 0.9 % Basophils (%) (Auto) 0.6 % Neutrophils # (Auto) 4.0 TH/MM3 Lymphocytes # (Auto) 2.2 TH/MM3 Monocytes # (Auto) 0.7 TH/MM3 Eosinophils # (Auto) 0.1 TH/MM3 Basophils # (Auto) 0.0 TH/MM3 CBC Comment DIFF FINAL Differential Comment Prothrombin Time 10.1 SEC Prothromb Time International Ratio 1.0 RATIO Activated Partial Thromboplast Time 26.7 SEC Blood Urea Nitrogen 13 MG/DL Creatinine 0.56 MG/DL Random Glucose 90 MG/DL Total Protein 8.0 GM/DL Albumin 4.3 GM/DL Calcium Level 9.0 MG/DL Alkaline Phosphatase 76 U/L Aspartate Amino Transf (AST/SGOT) 16 U/L Alanine Aminotransferase (ALT/SGPT) 18 U/L Total Bilirubin 1.4 MG/DL Sodium Level 140 MEQ/L Potassium Level 3.5 MEQ/L Chloride Level 104 MEQ/L Carbon Dioxide Level 27.8 MEQ/L Anion Gap 8 MEQ/L Estimat Glomerular Filtration Rate 137 ML/MIN Clue Cells (Wet Prep) NONE SEEN Vaginal Trichomonas (Wet Prep) NONE SEEN Vaginal Yeast (Wet Prep) NONE SEEN MDM Medical Record Reviewed: Yes Supervised Visit with BRANDEN: Yes Interpretation(s) CBC & BMP Diagram 11/29/17 00:05 Total Protein 8.0, Albumin 4.3, Calcium Level 9.0, Alkaline Phosphatase 76, Aspartate Amino Transf (AST/SGOT) 16, Alanine Aminotransferase (ALT/SGPT) 18, Total Bilirubin 1.4 H Last 24 hours Impressions Abdomen/Pelvis/Transvag US 11/28/17 2331 Signed Impressions: Service Date/Time: Tuesday, November 28, 2017 23:53 - CONCLUSION: 1. Unremarkable ultrasound examination of the pelvis. Sai Powell MD Abdomen/Pelvis CT 11/28/17 2331 Signed Impressions: Service Date/Time: Wednesday, November 29, 2017 02:06 - CONCLUSION: 1. No definitive findings to explain patient's abdominal pain. 2. Normal appendix. Sai Powell MD Differential Diagnosis MDM: High Differential diagnoses: Acute appendicitis, acute pancreatitis, diverticulitis, hepatitis, colitis, ischemic bowel, bowel instruction, nonspecific abdominal pain, gastroparesis, electrolyte abnormality, dehydration, drug-seeking, malingering Narrative Course I was asked to review the patient's CT scan of her abdomen. The patient been seen by and determined to have a urinary tract infection. Her ultrasound was unremarkable. Patient's CAT scan is unremarkable. Patient will be treated for UTI and discharged. This is UTI, abdominal pain Diagnosis Primary Impression: UTI (urinary tract infection) Qualified Codes: N30.01 - Acute cystitis with hematuria Additional Impression: Abdominal pain Qualified Codes: R10.30 - Lower abdominal pain, unspecified Referrals: Bench Examiner 3 days [facility] 3 days Primary Care Physician 3 days Additional Instruction: Follow-up with a primary care physician this week. Follow-up with a route delivery manager this week. Return to the emergency department for worsening symptoms or any other concerns. Med/Other Pt SpecificInfo: Prescription(s) given Scripts Ibuprofen (Ibuprofen) 600 Mg Tab 600 MG PO Q8H Y for PAIN for 7 Days, #21 TAB 0 Refills Prov: Hank Centeno MD 11/29/17 Nitrofurantoin Monohydrate Macrocrystals (Macrobid) 100 Mg Cap 100 MG PO BID for Infection for 7 Days, #14 CAP 0 Refills Prov: Hank Centeno MD 11/29/17 Disposition: 01 DISCHARGE HOME Condition: Stable August Meza Nov 29, 2017 03:03
[2017-11-29 04:02] VITALS: BP 110/68
== END 2017-11-29 04:41 | disposition home or self-care (01) ==
LOC: NEPD 23:09
DX: N30.01 Acute cystitis with hematuria (principal); R10.30 Lower abdominal pain, unspecified; Z87.09 Personal history of other diseases of the respiratory system
CPT/HCPCS: 74177; 76830; 76856; 80053; 81001; 84703; 85025; 85610; 85730; 87086; 87210; 87491; 87591; 93975; 96374; 96375; 99285; J0696; J1885; J7030; Q9963; Q9967

== ENCOUNTER 2018-01-19 22:10 | Emergency (ER) | payer BC ==
[~2018-01-19] VITALS: Ht 157.5 cm; Wt 55.5 kg
[~2018-01-19 22:10] MED LIST changes: +IBUP-232 PO; +MACR100C2 PO; -OXYC1TAB63 PO
[2018-01-19 22:31] VITALS: BP 147/74; PULSE 72; RESP 18; TEMP 98.2; O2SAT 99
[2018-01-20 00:03] LABS: AUTOMATED NEUTROPHIL # 3.8 TH/MM3 (1.8-7.7); BASOPHIL % 0.6 % (0.0-2.0); EOSINOPHIL # 0.1 TH/MM3 (0-0.4); EOSINOPHIL % 1.4 % (0.0-4.0); HEMATOCRIT 37.5 % (35.0-46.0); HEMOGLOBIN 12.6 GM/DL (11.6-15.3); LYMPH % 34.3 % (9.0-44.0); LYMPHOCYTE # 2.5 TH/MM3 (1.0-4.8); MEAN CELL VOLUME 87.3 FL (80.0-100.0); MEAN CORPUSCULAR HEMOGLOBIN 29.2 PG (27.0-34.0); MEAN CORPUSCULAR HGB CONC 33.5 % (32.0-36.0); MEAN PLATELET VOLUME 7.8 FL (7.0-11.0); MONO % 12.6 % (0.0-8.0); MONOCYTE # 0.9 TH/MM3 (0-0.9); NEUT % 51.1 % (16.0-70.0); PLATELET COUNT 271 TH/MM3 (150-450); RED CELL DISTRIBUTION WIDTH 14.9 % (11.6-17.2); WHITE BLOOD COUNT 7.4 TH/MM3 (4.0-11.0)
[2018-01-20 00:14] LABS: BACTERIA, URINE RARE /hpf; BILIRUBIN, URINE NEG (NEG); BLOOD, URINE NEG (NEG); GLUCOSE,URINE NEG (NEG); KETONE, URINE NEG (NEG); MUCUS URINE FEW /lpf (OCC); NITRITE,URINE NEG (NEG); RENAL EPITHELIAL CELLS <1 /hpf; SQUAMOUS EPITHELIAL CELL URINE 6 /hpf (0-5); URINE COLOR YELLOW (YELLW/STRAW); URINE LEUKOCYTE ESTERASE MOD (NEG)
[2018-01-20 00:38] LABS: ALT (GPT) 16 U/L (10-53); AST (GOT) 13 U/L (15-37); BLOOD UREA NITROGEN 10 MG/DL (7-18); CALCIUM 8.5 MG/DL (8.5-10.1); CHLORIDE 106 MEQ/L (98-107); CREATININE 0.58 MG/DL (0.50-1.00); GLOMERULAR FILTRATION RATE 131 ML/MIN (>89); GLUCOSE,RANDOM 80 MG/DL (74-106); SODIUM (NA) 140 MEQ/L (136-145)
[2018-01-20 00:40] LABS: ALKALINE PHOSPHATASE 71 U/L (45-117); TOTAL BILIRUBIN ADULT 1.1 MG/DL (0.2-1.0); TOTAL PROTEIN 7.5 GM/DL (6.4-8.2)
[2018-01-20 02:44] VITALS: BP 121/70; PULSE 72; RESP 16; O2SAT 98
--- NOTE | 2018-01-20 03:12 | PD ---
HPI Chief Complaint: Abdominal Pain Time Seen by Provider: 02:53 Travel History International Travel<30 days: No Contact w/Intl Traveler<30days: No Traveled to known affect area: No History of Present Illness HPI Patient has noted epigastric burning sensation ongoing for the last 2-3 days pain is rated at about 5 out of 10, nonradiating. No alleviating or aggravating factors. Patient denies associated factors such as fever, rash, headache, chest pain, back pain, vomiting, diarrhea, runny nose, cough. No known drug allergy Past medical history significant for asthma only. PFSH Past Medical History Asthma: Yes Diminished Hearing: No Immunizations Current: Yes Tetanus Vaccination: Never Vaccinated Influenza Vaccination: No ?: Not Past Surgical History Surgical History: No Previous Surgery Social History Alcohol Use: Yes ([facility]) Tobacco Use: No Substance Use: No Allergies-Medications (Allergen,Severity, Reaction): Coded Allergies: No Known Allergies (Verified Adverse Reaction, Unknown, 11/28/17) Reported Meds & Prescriptions Reported Meds & Active Scripts Active No Active Prescriptions or Reported Medications Review of Systems Except as stated in HPI: all other systems reviewed are Neg General / Constitutional: No: Fever Eyes: No: Visual changes HENT: No: Headaches Cardiovascular: No: Chest Pain or Discomfort Respiratory: No: Shortness of Breath Gastrointestinal: Positive: Nausea, Abdominal Pain (Epigastric) Genitourinary: No: Dysuria Musculoskeletal: No: Pain Skin: No Rash Neurologic: No: Weakness Psychiatric: No: Depression Endocrine: No: Polydipsia Hematologic/Lymphatic: No: Easy Bruising Physical Exam Narrative GENERAL: SKIN: Warm and dry. HEAD: Atraumatic. Normocephalic. EYES: Pupils equal and round. No scleral icterus. No injection or drainage. ENT: No nasal bleeding or discharge. Mucous membranes pink and moist. NECK: Trachea midline. No JVD. CARDIOVASCULAR: Regular rate and rhythm. RESPIRATORY: No accessory muscle use. Clear to auscultation. Breath sounds equal bilaterally. GASTROINTESTINAL: Abdomen soft, mild epigastric tenderness to deep palpation, nondistended. MUSCULOSKELETAL: Extremities without clubbing, cyanosis, or edema. No obvious deformities. NEUROLOGICAL: Awake and alert. No obvious cranial nerve deficits. Motor grossly within normal limits. Five out of 5 muscle strength in the arms and legs. Normal speech. PSYCHIATRIC: Appropriate mood and affect; insight and judgment normal. Data Data Last Documented VS Vital Signs Date Time Temp Pulse Resp B/P (MAP) Pulse Ox O2 Delivery O2 Flow Rate FiO2 01/20/18 02:44 72 16 121/70 (87) 98 Room Air 01/19/18 22:31 98.2 Orders Orders Complete Blood Count With Diff (01/19/18 22:32) Comprehensive Metabolic Panel (01/19/18 22:32) Lipase (01/19/18 22:32) Urinalysis - C+S If Indicated (01/19/18 22:32) Ed Urine Pregnancytest Poc (01/19/18 22:32) Urine Culture (01/19/18 23:16) Al-Mag Hy-Si 40-40-4 Mg/Ml Liq (Mag-Al P (01/20/18 03:30) Lidocaine 2% Viscous (Xylocaine 2% Visco (01/20/18 03:30) Ondansetron Odt (Zofran Odt) (01/20/18 03:30) Labs Laboratory Tests Test 01/19/18 23:16 White Blood Count 7.4 TH/MM3 Red Blood Count 4.30 MIL/MM3 Hemoglobin 12.6 GM/DL Hematocrit 37.5 % Mean Corpuscular Volume 87.3 FL Mean Corpuscular Hemoglobin 29.2 PG Mean Corpuscular Hemoglobin Concent 33.5 % Red Cell Distribution Width 14.9 % Platelet Count 271 TH/MM3 Mean Platelet Volume 7.8 FL Neutrophils (%) (Auto) 51.1 % Lymphocytes (%) (Auto) 34.3 % Monocytes (%) (Auto) 12.6 % Eosinophils (%) (Auto) 1.4 % Basophils (%) (Auto) 0.6 % Neutrophils # (Auto) 3.8 TH/MM3 Lymphocytes # (Auto) 2.5 TH/MM3 Monocytes # (Auto) 0.9 TH/MM3 Eosinophils # (Auto) 0.1 TH/MM3 Basophils # (Auto) 0.0 TH/MM3 CBC Comment DIFF FINAL Differential Comment Urine Color YELLOW Urine Turbidity HAZY Urine pH 7.0 Urine Specific [place] 1.026 Urine Protein TRACE mg/dL Urine Glucose (UA) NEG mg/dL Urine Ketones NEG mg/dL Urine Occult Blood NEG Urine Nitrite NEG Urine Bilirubin NEG Urine Urobilinogen 4.0 MG/DL Urine Leukocyte Esterase MOD Urine RBC 1 /hpf Urine WBC 23 /hpf Urine Squamous Epithelial Cells 6 /hpf Urine Renal Epithelial Cells <1 /hpf Urine Bacteria RARE /hpf Urine Mucus FEW /lpf Microscopic Urinalysis Comment CULTURE INDICATED Blood Urea Nitrogen 10 MG/DL Creatinine 0.58 MG/DL Random Glucose 80 MG/DL Total Protein 7.5 GM/DL Albumin 4.0 GM/DL Calcium Level 8.5 MG/DL Alkaline Phosphatase 71 U/L Aspartate Amino Transf (AST/SGOT) 13 U/L Alanine Aminotransferase (ALT/SGPT) 16 U/L Total Bilirubin 1.1 MG/DL Sodium Level 140 MEQ/L Potassium Level 3.6 MEQ/L Chloride Level 106 MEQ/L Carbon Dioxide Level 30.0 MEQ/L Anion Gap 4 MEQ/L Estimat Glomerular Filtration Rate 131 ML/MIN Lipase 198 U/L [facility] Medical Decision Making Medical Screen Exam Complete: Yes Emergency Medical Condition: Yes Medical Record Reviewed: Yes Differential Diagnosis Dyspepsia versus related versus liver disease versus pancreatitis Narrative Course CBC shows no leukocytosis, normal H&H of 12/37, normal platelet count, no left shift. Chemistry profile shows normal electrolytes, normal kidney function normal liver function, normal lipase. UA is consistent with a UTI. Negative . Procedures Procedure Narrative Bedside right upper quadrant ultrasound performed by me: Did not reveal any thickened gallbladder wall, no pericholecystic fluid, no gallstones noted. Diagnosis Primary Impression: Dyspepsia Additional Impression: UTI Referrals: Vin Alejandre MD for further evaluation of your condition. Patient Instructions: Diet for Stomach Ulcers and Gastritis (ED), Gastritis (DC ), General Instructions Scripts Nitrofurantoin Macrocrystal (Macrodantin) 100 Mg Cap 100 MG PO BID for 5 Days, #10 CAP 0 Refills Prov: Saturnino Watkins MD 01/20/18 Ondansetron Odt (Zofran Odt) 4 Mg Tab 4 MG SL Q6HR Y for Nausea/Vomiting, #30 TAB 0 Refills Prov: Saturnino Watkins MD 01/20/18 Omeprazole (Omeprazole) 20 Mg Tab 20 MG PO DAILY, #30 TAB 3 Refills Prov: Saturnino Watkins MD 01/20/18 Sucralfate Liq (Carafate Liq) 1 Gm/10 Ml Susp 1 GM PO TID for Duodenal ulcer, #900 ML 0 Refills on empty stomach Prov: Saturnino Watkins MD 01/20/18 Disposition: 01 DISCHARGE HOME Condition: Stable Saturnino Watkins MD Jan 20, 2018 03:12
[2018-01-20] MEDS ORDERED: LIDOCAINE VISCOUS 2% SOLN 15 ML UDC PO ONE (03:30)
[2018-01-20] MEDS ORDERED: ONDANSETRON ODT 4 MG TAB PO/SL ONE (03:30)
[2018-01-20] MEDS ORDERED: ZOFR4TAB3 SL (03:30)
[2018-01-20] MEDS ORDERED: MACR100C3 PO (03:30)
[2018-01-20] MEDS ORDERED: CARA1SUS3 PO (03:30)
[2018-01-20] MEDS ORDERED: OMEP20TA93 PO (03:30)
[2018-01-20] MEDS ORDERED: ALUMINUM/MAGNESIUM/SIMETH 30 ML CUP PO ONE (03:30)
== END 2018-01-20 04:07 | disposition home or self-care (01) ==
LOC: NEPC 22:10
DX: R10.13 Epigastric pain (principal); N39.0 Urinary tract infection, site not specified; J45.909 Unspecified asthma, uncomplicated
CPT/HCPCS: 80053; 81001; 83690; 84703; 85025; 87086